=== PATIENT | female | born 1955 | race Caucasian/White ===

== ENCOUNTER 2017-01-14 05:51 | Day surgery (SDC) | payer MEDICARE ==
[2017-01-14] MEDS ORDERED: Lactated Ringers 1,000 ML IV SCH (06:00)
[2017-01-14 06:30] VITALS: PULSE 61
[2017-01-14] MEDS ORDERED: Ketamine HCl 50 MG/ML IV ONE (08:00)
[2017-01-14] MEDS ORDERED: DIPRIVAN 200 MG/20 ML IV ONE (08:00)
[2017-01-14 08:43] VITALS: BP 130/70; O2SAT 100
--- NOTE | 2017-01-14 08:59 | OP ---
SURGERY DATE: 01/14/17 SURGERY TIME: 729 PREOPERATIVE DIAGNOSIS: 1. ABDOMINAL PAIN. 2. WEIGHT LOSS. 3. HISTORY OF COLON POLYPS. POSTOPERATIVE DIAGNOSIS: 1. SIGMOID COLON POLYP. 2. TRANSVERSE COLON POLYP. PROCEDURE: 1. Colonoscopy with polypectomy. SURGEON: Dr. Antonio. ANESTHESIA: MAC. Medications given by the Anesthesia Department. BRIEF HISTORY: The patient is a 62 y/o WF presenting now for colonoscopic evaluation for the above problems. The patient was appraised of the risks of the procedure including the risk of perforation, phlebitis, untoward reaction to medication, bleeding, and missed lesions. The patient verbalized her understanding and desired to have the procedure performed. DESCRIPTION OF PROCEDURE: The patient was given the medications by the Anesthesia Department. She had continuous pulse oximetry, ECG monitoring, intermittent BP monitoring, and end tidal CO2 monitoring during the examination. She was placed in the left lateral decubitus position. A digital rectal examination was performed and revealed normal anal sphincter tone and no masses. The flexible Olympus pediatric colonoscope was used to intubate the rectum. A view of the colon was developed sequentially to the cecum. Upon insertion and withdrawal, was noted a polyp measuring approximately 0.7 cm in size in the transverse colon. This was destroyed using multiple passes of the cold biopsy forceps. There was also a larger, approximately 1.2 cm pedunculated polyp noted in the sigmoid colon. This was removed using the polypectomy snare with hot technique, but the polyp was retrieved for pathologic evaluation. Upon insertion and withdrawal, including a retroflex view in the rectum, no other mucosal lesions were encountered. The scope was removed from the patient who tolerated the procedure well and was sent back to OP recovery in good condition. The prep was noted to be fair to good.
== END 2017-01-14 09:12 | disposition home or self-care (01) ==
LOC: SDC 05:51
PROVIDERS: ATTEND Family Medicine
PROC: 0DBN8ZX Excision of Sigmoid Colon, Via Natural or Artificial Opening Endoscopic, Diagnostic (ICD-10-PCS; principal; 2017-01-14)
PROC: 0DBL8ZX Excision of Transverse Colon, Via Natural or Artificial Opening Endoscopic, Diagnostic (ICD-10-PCS; 2017-01-14)
DX: D12.5 Benign neoplasm of sigmoid colon (principal); D12.3 Benign neoplasm of transverse colon; Z86.010 Personal history of colon polyps; R63.4 Abnormal weight loss
CPT/HCPCS: 00810; 36415; 45398; 88305; J2704

== ENCOUNTER 2017-05-02 05:51 | Day surgery (SDC) | payer MEDICARE, SELFPAY ==
[2017-05-02] MEDS ORDERED: DIPRIVAN 200 MG/20 ML IV ONE (05:52)
[2017-05-02] MEDS ORDERED: Lactated Ringers 1,000 ML IV SCH (06:00)
[2017-05-02 07:57] VITALS: PULSE 72; O2SAT 97
[2017-05-02 08:03] VITALS: BP 143/81
--- NOTE | 2017-05-02 13:59 | OP ---
SURGERY DATE/TIME: 05/02/2017 0655 PREOPERATIVE DIAGNOSIS: Dysphagia. POSTOPERATIVE DIAGNOSES: 1) Duodenitis. 2) Gastritis. PROCEDURE: Esophagogastroduodenoscopy with biopsy. SURGEON: Dr. Antonio. ANESTHESIA: Medications were given by the anesthesia department. HISTORY: The patient is a 62 year old white female with history of having had cholecystectomy. She reports that she is not digesting her food right and having problems with discomfort in her epigastric region. The patient was felt the need to have endoscopic evaluation. She was appraised of the risks of the procedure including the risk of perforation, phlebitis, untoward reaction to medication, bleeding and missed lesions. The patient verbalized her understanding and desired to have the procedure performed. DESCRIPTION OF PROCEDURE: The patient was given the medications by the anesthesia department. She had continuous pulse oximetry, ECG monitoring, intermittent blood pressure monitoring and tidal CO2 monitoring during the examination. She was placed in the left lateral decubitus position. A bite block was placed. A flexible Olympus gastroscope was used to intubate the oropharynx. The esophagus was entered with ease and appeared to be normal throughout its length. The stomach was entered where normal gastric rugal folds were seen and these distended nicely with the insufflation of air. There was noted to be erythema and areas of inflammation throughout the antrum and first portion of the duodenum. There were no erosions or ulcerations however. The scope was passed through the pylorus to the duodenum which was inspected. The scope was withdrawn towards the stomach. Again, a retroflex view was obtained of the lesser curvature, fundus and cardia regions of the stomach and these appeared to be normal. The scope was then redirected towards the gastric antrum and biopsies were obtained to rule out the presence of Helicobacter pylori-type organisms and confirmed the presence of gastritis. The scope was removed from the patient who tolerated the procedure well and was sent back to outpatient recovery in good condition.
== END 2017-05-02 08:10 | disposition home or self-care (01) ==
LOC: SDC 05:51
PROVIDERS: ATTEND Family Medicine
PROC: 0DB68ZX Excision of Stomach, Via Natural or Artificial Opening Endoscopic, Diagnostic (ICD-10-PCS; principal; 2017-05-02)
DX: K29.80 Duodenitis without bleeding (principal); K29.70 Gastritis, unspecified, without bleeding
CPT/HCPCS: 00740; 36415; 88305; J2704

== ENCOUNTER 2017-12-14 17:07 | Observation (INO) | payer MEDICARE, SELFPAY ==
[2017-12-14] MEDS ORDERED: PROTONIX 40 MG IV IV ONE ×2 (17:39→17:45)
[2017-12-14] MEDS ORDERED: Sodium Chloride 0.9% 1000 ML 1,000 ML IV STA (17:39)
[2017-12-14] MEDS ORDERED: APRESOLINE 20 MG/ML INJ IV ONE (17:41)
[2017-12-14] MEDS ORDERED: Sodium Chloride 0.9% 1000 ML 1,000 ML ONE (17:45)
[2017-12-14] MEDS ORDERED: APRESOLINE 20 MG/ML INJ ONE (17:45)
--- NOTE | 2017-12-14 17:45 | ERPHSYRPT ---
- History of Present Illness Historian: patient Patient Subjective Stated Complaint: Abdominal Pain and bloating x3 weeks Triage Nursing Assessment: Pt presents to the ED with complaints of abdominal pain and bloating x3 weeks. Pt states worsening pain today at 1500. Pt states hx of gastroporesis. Pt denies other complaints. No distress noted, skin PWD. Hx Tetanus, Diphtheria Vaccination/Date Given: No Hx Influenza Vaccination/Date Given: Yes Hx Pneumococcal Vaccination/Date Given: No Immunizations Up to Date: No <VANESSA RODAS - Last Filed: 12/14/17 18:41> <ULICES LEON - Last Filed: 12/14/17 19:51> - History of Present Illness Time Seen by Provider: 12/14/17 17:42 Physician History: mild to mod off and on diffuse abdominal cramps for 3 weeks, no injury, no emesis, hx gastroparesis, but no dm (VANESSA RODAS) Allergies/Adverse Reactions: midazolam [From Versed] Adverse Reaction (Mild, Verified 05/02/17 06:12) Nausea and Vomiting Home Medications: Metoprolol Tartrate 50 mg [Lopressor 50 MG] 50 mg PO BID 01/12/17 [History ] - Review of Systems Constitutional: No Fever Eyes: No Vision Changes Ears, Nose, & Throat: No Mouth Pain Respiratory: No Cough, No Dyspnea Cardiac: No Chest Pain Abdominal/Gastrointestinal: Abdominal Pain, Nausea Genitourinary Symptoms: No Dysuria Musculoskeletal: No Back Pain Neurological: No Dizziness <VANESSA RODAS - Last Filed: 12/14/17 18:41> - Past Medical History Pertinent Past Medical History: Yes Neurological History: No Pertinent History ENT History: No Pertinent History Cardiac History: Hypertension Respiratory History: No Pertinent History Endocrine Medical History: No Pertinent History Musculoskeletal History: No Pertinent History GI Medical History: Gallbladder Disease, Other History: No Pertinent History Psycho-Social History: No Pertinent History Female Reproductive Disorders: No Pertinent History Other Medical History: pt states "i have neuropathy,even though i've not been diagnosed. I have a fatty liver with lesions,but they told me after my last C.T. scan that it had resolved. ". - Past Surgical History Past Surgical History: Yes Neuro Surgical History: No Pertinent History Cardiac: No Pertinent History Respiratory: No Pertinent History Gastrointestinal: Cholecystectomy, Other Genitourinary: No Pertinent History Musculoskeletal: No Pertinent History Female Surgical History: No Pertinent History Other Surgical History: pt states has gastric poresis - Social History Smoking Status: Never smoker Exposure to second hand smoke: No Drug Use: none Patient Lives Alone: No - Female History Hx Now: No <VANESSA RODAS - Last Filed: 12/14/17 18:41> - Physical Exam General Appearance: no apparent distress Eye Exam: PERRL/EOMI Ears, Nose, Throat Exam: moist mucous membranes Neck Exam: normal inspection Respiratory Exam: normal breath sounds Cardiovascular Exam: regular rate/rhythm Gastrointestinal/Abdomen Exam: soft, tenderness, No rebound Extremity Exam: normal inspection, pelvis stable Neurologic Exam: alert, oriented x 3, cooperative Skin Exam: normal color, warm, dry SpO2 Interpretation: normal SpO2: 99 Oxygen Delivery: Room Air <VANESSA RODAS - Last Filed: 12/14/17 18:41> - Nursing Vital Signs Nursing Vital Signs: Initial Vital Signs Temperature 98.2 F 12/14/17 17:14 Pulse Rate 120 H 12/14/17 17:14 Respiratory Rate 16 12/14/17 17:14 Blood Pressure 222/121 12/14/17 17:14 O2 Sat by Pulse Oximetry 99 12/14/17 17:14 Pain Scale Pain Intensity 4 Ordered Tests: Active Orders 24 hr Category Date Time Status Bedrest with BRP/BSC ROUTINE Activity 12/14/17 19:47 Active Call Admit Doctor for Orders ON ADMISSION Care 12/14/17 19:46 Active Code Status Order ROUTINE Care 12/14/17 19:45 Active EKG-ER Only STAT Care 12/14/17 17:39 Active IV Care Q6H Care 12/14/17 19:45 Active IV Insertion STAT Care 12/14/17 17:[address] in Observation ROUTINE Care 12/14/17 19:45 Active Telemetry ROUTINE Care 12/14/17 19:45 Active Weight,Daily 0600 Care 12/14/17 19:45 Active Clear Liquid Diet 12/15/17 Breakfast Active ABDOMEN AND PELVIS W/0 CONTRAS [CT] Stat Exams 12/14/17 17:40 Taken AMYLASE AM.LAB Lab 12/16/17 04:00 Ordered AMYLASE Stat Lab 12/14/17 19:23 Ordered CBC W DIFF AM.LAB Lab 12/15/17 04:00 Ordered CBC W DIFF Stat Lab 12/14/17 17:30 Completed CMP AM.LAB Lab 12/15/17 04:00 Ordered CMP Stat Lab 12/14/17 17:30 Completed D-DIMER QUANTITATION Stat Lab 12/14/17 17:30 Completed LIPASE AM.LAB Lab 12/16/17 04:00 Ordered LIPASE Stat Lab 12/14/17 17:30 Completed Lactic Acid Stat Lab 12/14/17 17:39 Completed PROTIME WITH INR Stat Lab 12/14/17 17:30 Completed TROPONIN Q3H Lab 12/14/17 17:53 Completed TROPONIN Q3H Lab 12/14/17 20:45 Ordered TROPONIN Q3H Lab 12/14/17 23:45 Ordered TROPONIN Q3H Lab 12/15/17 02:45 Ordered TROPONIN Q3H Lab 12/15/17 05:45 Ordered Urine Triage Profile Stat Lab 12/14/17 19:06 Completed Medication Summary Generic Name Dose Route Start Last Admin Trade Name Freq PRN Reason Stop Dose Admin Hydralazine HCl 10 mg 12/14/17 19:45 Apresoline 20 Mg/Ml Inj IV 01/13/18 19:44 Q4H PRN PRN HYPERTENSION Potassium Chloride/Sodium Chloride 1,000 mls @ 100 mls/hr 12/14/17 19:45 Sodium Chloride 0.9% W/ 20 Meq Kcl/Liter IV 01/13/18 19:44 .Q10H LUISITO Morphine Sulfate 4 mg 12/14/17 19:45 Morphine Sulfate 4 Mg Inj IV 12/19/17 19:44 Q4H PRN PRN PAIN Ondansetron HCl 4 mg 12/14/17 19:45 Zofran 4 Mg/2 Ml Vial IV 01/13/18 19:44 Q6H PRN PRN NAUSEA/VOMITING Potassium Chloride 40 meq 12/15/17 10:00 12/14/17 18:48 Potassium Chl 40 Meq/30 Ml Oral Solution PO 01/14/18 09:59 Not Given DAILY LUISITO Discontinued Medications Generic Name Dose Route Start Last Admin Trade Name Freq PRN Reason Stop Dose Admin Hydralazine HCl 10 mg 12/14/17 17:41 12/14/17 17:50 Apresoline 20 Mg/Ml Inj IV 12/14/17 17:42 10 mg STAT ONE Administration Hydralazine HCl Confirm 12/14/17 17:45 Apresoline 20 Mg/Ml Inj Administered 12/14/17 17:46 Dose 20 mg .ROUTE .STK-MED ONE Sodium Chloride 1,000 mls @ 999 mls/hr 12/14/17 17:39 12/14/17 17:50 Sodium Chloride 0.9% 1000 Ml IV 12/14/17 18:39 999 mls/hr .Q1H1M STA Administration Sodium Chloride Confirm 12/14/17 17:45 Sodium Chloride 0.9% 1000 Ml Administered 12/14/17 17:46 Dose 1,000 mls @ ud .ROUTE .STK-MED ONE Pantoprazole Sodium 40 mg 12/14/17 17:39 12/14/17 17:49 Protonix 40 Mg Iv IV 12/14/17 17:40 40 mg STAT ONE Administration Pantoprazole Sodium Confirm 12/14/17 17:45 Protonix 40 Mg Iv Administered 12/14/17 17:46 Dose 40 mg IV .STK-MED ONE Potassium Chloride 40 meq 12/14/17 18:49 12/14/17 18:54 Potassium Chloride 20 Meq Powder For Oral Kanika PO 12/14/17 18:50 40 meq STAT ONE Administration Potassium Chloride Confirm 12/14/17 18:51 Potassium Chloride 20 Meq Powder For Oral Kanika Administered 12/14/17 18:52 Dose 40 meq .ROUTE .STK-MED ONE Lab/Rad Data: Laboratory Result Diagrams 12/14/17 17:30 12/14/17 17:30 Laboratory Results 12/14/17 12/14/17 12/14/17 Range/Units 19:06 17:53 17:39 WBC (4.0-10.5) K/mm3 RBC (4.1-5.4) M/mm3 Hgb (12.0-16.0) gm/dl Hct (35-47) % MCV (78-100) fl MCH (26-32) pg MCHC (32-36) g/dl RDW (11.5-14.0) % Plt Count (150-450) K/mm3 MPV (6-9.5) fl Gran % (36.0-66.0) % Eos # (Auto) (0-0.5) Absolute Lymphs (auto) (1.0-4.6) Absolute Monos (auto) (0.0-1.3) Lymphocytes % (24.0-44.0) % Monocytes % (0.0-12.0) % Eosinophils % (0.00-5.0) % Basophils % (0.0-0.4) % Absolute Granulocytes (1.4-6.9) Basophils # (0-0.4) PT (9.95-12.35) SECONDS INR (0.8-3.0) D-Dimer (215-500) ng/mL Sodium (137-145) mmol/L Potassium (3.5-5.1) mmol/L Chloride (98-107) mmol/L Carbon Dioxide (22-30) mmol/L Anion Gap (5-15) MEQ/L BUN (7-17) mg/dL Creatinine (0.52-1.04) mg/dL Estimated GFR ML/MIN Glucose (74-106) mg/dL Lactic Acid 1.7 (0.4-2.0) Calcium (8.4-10.2) mg/dL Total Bilirubin (0.2-1.3) mg/dL AST (14-36) U/L ALT (0-35) U/L Alkaline Phosphatase (38-126) U/L Troponin I 0.034 (0.000-0.034) ng/mL Serum Total Protein (6.3-8.2) g/dL Albumin (3.5-5.0) g/dL Lipase (23-300) U/L Urine Opiates Level NEGATIVE (NEGATIVE) Ur Methadone NEGATIVE (NEGATIVE) Urine Barbiturates NEGATIVE (NEGATIVE) Ur Phencyclidine (PCP) NEGATIVE (NEGATIVE) Urine Amphetamine NEGATIVE (NEGATIVE) U Benzodiazepine Level NEGATIVE (NEGATIVE) Urine Cocaine NEGATIVE (NEGATIVE) Urine Marijuana (THC) NEGATIVE (NEGATIVE) 12/14/17 12/14/17 12/14/17 Range/Units 17:30 17:30 17:30 WBC 8.8 (4.0-10.5) K/mm3 RBC 5.49 H (4.1-5.4) M/mm3 Hgb 16.0 (12.0-16.0) gm/dl Hct 45.8 (35-47) % MCV 83.4 (78-100) fl MCH 29.1 (26-32) pg MCHC 34.9 (32-36) g/dl RDW 13.2 (11.5-14.0) % Plt Count 286 (150-450) K/mm3 MPV 11.7 H (6-9.5) fl Gran % 51.7 (36.0-66.0) % Eos # (Auto) 0.21 (0-0.5) Absolute Lymphs (auto) 3.16 (1.0-4.6) Absolute Monos (auto) 0.82 (0.0-1.3) Lymphocytes % 35.9 (24.0-44.0) % Monocytes % 9.3 (0.0-12.0) % Eosinophils % 2.4 (0.00-5.0) % Basophils % 0.7 (0.0-0.4) % Absolute Granulocytes 4.54 (1.4-6.9) Basophils # 0.06 (0-0.4) PT 13.1 H (9.95-12.35) SECONDS INR 1.13 (0.8-3.0) D-Dimer 404 (215-500) ng/mL Sodium 142 (137-145) mmol/L Potassium 2.6 L* (3.5-5.1) mmol/L Chloride 95 L (98-107) mmol/L Carbon Dioxide 30 (22-30) mmol/L Anion Gap 19.3 H (5-15) MEQ/L BUN 4 L (7-17) mg/dL Creatinine 0.62 (0.52-1.04) mg/dL Estimated GFR > 60.0 ML/MIN Glucose 137 H (74-106) mg/dL Lactic Acid (0.4-2.0) Calcium 9.6 (8.4-10.2) mg/dL Total Bilirubin 0.70 (0.2-1.3) mg/dL AST 55 H (14-36) U/L ALT 55 H (0-35) U/L Alkaline Phosphatase 116 (38-126) U/L Troponin I (0.000-0.034) ng/mL Serum Total Protein 7.7 (6.3-8.2) g/dL Albumin 4.5 (3.5-5.0) g/dL Lipase 287 (23-300) U/L Urine Opiates Level (NEGATIVE) Ur Methadone (NEGATIVE) Urine Barbiturates (NEGATIVE) Ur Phencyclidine (PCP) (NEGATIVE) Urine Amphetamine (NEGATIVE) U Benzodiazepine Level (NEGATIVE) Urine Cocaine (NEGATIVE) Urine Marijuana (THC) (NEGATIVE) <VANESSA RODAS - Last Filed: 12/14/17 18:41> - Progress Progress: improved <ULICES LEON - Last Filed: 12/14/17 19:51> - Progress Progress Note: 12/14/17 18:[address] Leon at 19:00 (VANESSA RODAS) 12/14/17 19:26 This is a 62-year-old white female with history of high blood pressure gallbladder disease neuropathy She arrives with complaints of epigastric pain abdominal pain and bloating for 3 weeks initially seen by Dr. Rodas Patient was noted to have markedly elevated blood pressure and also was noted to have a low potassium patient was given hydralazine and oral potassium by Dr. Rodas CT of the patient's abdomen hiatal hernia no new or acute findings Labs CBC 8.8 hemoglobin 16 0 hematocrit 45.8 platelets 286 troponin 0.34D dimer 404 chemistry sodium 142 potassium 2.6 chloride 95 bicarbonate 30 BUN 4 creatinine 0.62 glucose 137 Patient's EKG sinus tachycardia 103 beats for minute complete right bundle- branch block left anterior fascicular block no old EKG for comparison Physical examination HEENT within normal limits Neck is supple lungs are clear heart 1/6 systolic murmur abdomen mild epigastric tenderness positive bowel sounds extremities full range of motion pulse equal symmetrical 2 over 4 neuro patient alert oriented 3 cranial nerves II through XII are intact. Impression abdominal pain., High blood pressure (hypertensive urgency) Patient states she is unable to eat and is not taking her blood pressure meds Plan Will discuss case with Dr. Amor 12/14/17 19:42 Case is discussed with Dr. Amor will place patient on observation telemetry. Will place patient on IV fluids. Will provide hydralazine when necessary blood pressure elevation. Morphine for pain Zofran for vomiting. (ULICES LEON) <VANESSA RODAS - Last Filed: 12/14/17 18:41> - Departure Time of Disposition: 19:44 Departure Disposition: Observation Critical Care Time: No <ULICES LEON - Last Filed: 12/14/17 19:51> - Departure Clinical Impression: Hypertensive urgency, Epigastric pain, Hypokalemia Condition: Fair Referrals: CABRERA GARSIA [Primary Care Provider] -
[2017-12-14 17:58] LABS: BASOPHIL % 0.7 % (0.0-0.4); Basophil (Absolute #) 0.06 (0-0.4); Eosinophil % 2.4 % (0.00-5.0); Eosinophil (Absolute #) 0.21 (0-0.5); Granulocyte Absolute (ANC) 4.54 (1.4-6.9); Granulocytes % 51.7 % (36.0-66.0); Hematocrit 45.8 % (35-47); Lymphocyte (Absolute #) 3.16 (1.0-4.6); Lymphocytes % 35.9 % (24.0-44.0); Mean Cell Volume 83.4 fl (78-100); Mean Corpuscular Hemoglobin 29.1 pg (26-32); Mean Corpuscular Hgb Concent. 34.9 g/dl (32-36); Mean Platelet Volume 11.7 fl (6-9.5); Monocyte (Absolute #) 0.82 (0.0-1.3); Monocytes % 9.3 % (0.0-12.0); Platelet Count 286 K/mm3 (150-450); Red Blood Count 5.49 M/mm3 (4.1-5.4); Red Cell Distribution Width 13.2 % (11.5-14.0); White Blood Count 8.8 K/mm3 (4.0-10.5)
[2017-12-14 18:09] LABS: ALBUMIN 4.5 g/dL (3.5-5.0); ALKALINE PHOSPHATASE 116 U/L (38-126); ANION GAP 19.3 MEQ/L (5-15); BLOOD UREA NITROGEN 4 mg/dL (7-17); CHLORIDE 95 mmol/L (98-107); Calcium 9.6 mg/dL (8.4-10.2); Carbon Dioxide 30 mmol/L (22-30); Creatinine 1 0.62 mg/dL (0.52-1.04); Glucose 137 mg/dL (74-106); LIPASE 287 U/L (23-300); SGOT/AST 55 U/L (14-36); SGPT/ALT 55 U/L (0-35); SODIUM 142 mmol/L (137-145); Total Protein 7.7 g/dL (6.3-8.2)
[2017-12-14 18:16] LABS: Potassium 2.6 mmol/L (3.5-5.1)
[2017-12-14 18:18] LABS: INR 1.13 (0.8-3.0)
[2017-12-14] MEDS ORDERED: POTASSIUM CHLORIDE 20 MEQ POWDER FOR ORAL SOL PO ONE (18:49)
[2017-12-14] MEDS ORDERED: POTASSIUM CHLORIDE 20 MEQ POWDER FOR ORAL SOL ONE (18:51)
[2017-12-14 19:26] LABS: Amphetamine,Urine NEGATIVE (NEGATIVE); Barbiturate,Urine NEGATIVE (NEGATIVE); Benzodiazepine,Urine NEGATIVE (NEGATIVE); Cocaine,Urine NEGATIVE (NEGATIVE); Methadone,Urine NEGATIVE (NEGATIVE); Opiate,Urine NEGATIVE (NEGATIVE); PCP,Urine NEGATIVE (NEGATIVE); THC,Urine NEGATIVE (NEGATIVE)
[2017-12-14] MEDS ORDERED: APRESOLINE 20 MG/ML INJ IV PRN (19:45)
[2017-12-14] MEDS ORDERED: MORPHINE SULFATE 4 MG INJ IV PRN (19:45)
[2017-12-14] MEDS: Sodium Chloride 0.9% W/ 20 mEq KCl/LITER 1,000 ML IV SCH (20:20)
[2017-12-14] MEDS: Zofran 4 MG/2 ML VIAL IV PRN (21:07)
[2017-12-15] MEDS: Zofran 4 MG/2 ML VIAL IV PRN ×3 (03:40→13:34)
[2017-12-15] MEDS: Sodium Chloride 0.9% W/ 20 mEq KCl/LITER 1,000 ML IV SCH ×2 (05:31→15:45)
[2017-12-15 06:04] LABS: Basophil (Absolute #) 0.07 (0-0.4); Eosinophil % 0.6 % (0.00-5.0); Eosinophil (Absolute #) 0.04 (0-0.5); Granulocyte Absolute (ANC) 4.56 (1.4-6.9); Granulocytes % 68.3 % (36.0-66.0); Hematocrit 39.4 % (35-47); Hemoglobin 13.4 gm/dl (12.0-16.0); Lymphocyte (Absolute #) 1.54 (1.0-4.6); Lymphocytes % 23.1 % (24.0-44.0); Mean Corpuscular Hemoglobin 29.3 pg (26-32); Mean Platelet Volume 11.5 fl (6-9.5); Monocyte (Absolute #) 0.47 (0.0-1.3); Platelet Count 218 K/mm3 (150-450); Red Blood Count 4.58 M/mm3 (4.1-5.4); Red Cell Distribution Width 13.3 % (11.5-14.0); White Blood Count 6.7 K/mm3 (4.0-10.5)
[2017-12-15 06:17] LABS: ALBUMIN 3.2 g/dL (3.5-5.0); ALKALINE PHOSPHATASE 82 U/L (38-126); ANION GAP 14.1 MEQ/L (5-15); BLOOD UREA NITROGEN 3 mg/dL (7-17); CHLORIDE 105 mmol/L (98-107); Calcium 8.6 mg/dL (8.4-10.2); Carbon Dioxide 29 mmol/L (22-30); Creatinine 1 0.54 mg/dL (0.52-1.04); Glucose 106 mg/dL (74-106); Potassium 3.5 mmol/L (3.5-5.1); SGOT/AST 37 U/L (14-36); SGPT/ALT 43 U/L (0-35); SODIUM 145 mmol/L (137-145); Total Protein 5.8 g/dL (6.3-8.2)
--- NOTE | 2017-12-15 08:24 | XRAY ---
Indication: Abdominal pain/pressure. Constipation. History gastroparesis. Multiple contiguous axial images obtained through the abdomen and pelvis without contrast as ordered. Comparison: December 23, 2016. Lung bases remain clear. Heart is not enlarged. Stable small hiatal hernia. Stomach mildly fluid distended. Noncontrasted stomach and bowel loops appear nonobstructed. Appendix not seen. No free fluid/air. Again mild fatty liver with stable 2 subcentimeter hypodense lesions in the right lobe. There remains a few nonspecific centimeter/subcentimeter mesenteric root nodes. Remaining pancreas, spleen, adrenal glands, kidneys, ureters, bladder, and uterus appear unremarkable for noncontrast exam. Stable minimal aortoiliac calcifications without AAA. Osseous structures intact again with degenerative changes, greatest in the lower lumbar spine. Stable tiny L2 bone island. No ventral or inguinal hernias. Impression: 1. Stable small hiatal hernia, small nonspecific mesenteric root nodes, fatty liver, and small hepatic hypodense lesions. 2. No new or acute intra-abdominal/pelvic abnormalities on this noncontrast exam. CT DI 25.31
--- NOTE | 2017-12-15 08:37 | XRAY ---
Indication: Abdominal bloating, constipation, nausea, and vomiting. Comparison: None. There is a CT abdomen/pelvis 1 day earlier. KUB nonacute and nonobstructed with cholecystectomy clips. Solid organs unremarkable. Osseous structures intact with mild degenerative changes. Impression: Negative KUB.
[2017-12-15] MEDS: PROTONIX 40 MG IV IV SCH (08:49)
[2017-12-15] MEDS ORDERED: Miralax Powder 17GM PACKET PO SCH (10:00)
[2017-12-15] MEDS ORDERED: POTASSIUM CHL 40 MEQ/30 ML ORAL SOLUTION PO SCH (10:00)
[2017-12-15] MEDS: Miralax Powder 17GM PACKET PO SCH (14:29)
[2017-12-15] MEDS: POTASSIUM CHLORIDE 20 MEQ POWDER FOR ORAL SOL PO SCH (14:35)
[2017-12-16] MEDS: Sodium Chloride 0.9% W/ 20 mEq KCl/LITER 1,000 ML IV SCH (01:42)
[2017-12-16 06:25] LABS: AMYLASE 50 U/L (30-110); LIPASE 256 U/L (23-300)
[2017-12-16 06:26] LABS: ALBUMIN 2.7 g/dL (3.5-5.0); ALKALINE PHOSPHATASE 69 U/L (38-126); ANION GAP 10.6 MEQ/L (5-15); BLOOD UREA NITROGEN 3 mg/dL (7-17); CHLORIDE 109 mmol/L (98-107); Calcium 8.3 mg/dL (8.4-10.2); Carbon Dioxide 25 mmol/L (22-30); Creatinine 1 0.63 mg/dL (0.52-1.04); Glucose 71 mg/dL (74-106); Potassium 3.6 mmol/L (3.5-5.1); SGOT/AST 36 U/L (14-36); SGPT/ALT 37 U/L (0-35); SODIUM 141 mmol/L (137-145); Total Protein 4.9 g/dL (6.3-8.2)
[2017-12-16] MEDS: Miralax Powder 17GM PACKET PO SCH (09:34)
[2017-12-16] MEDS: PROTONIX 40 MG IV IV SCH (09:34)
[2017-12-16] MEDS: POTASSIUM CHLORIDE 20 MEQ POWDER FOR ORAL SOL PO SCH (09:34)
[2017-12-16 12:15] VITALS: BP 146/66; PULSE 52; O2SAT 100
== END 2017-12-16 16:05 | disposition home or self-care (01) ==
LOC: ED 17:07 → MED SURG 20:09
PROVIDERS: ADMIT Family Medicine; ATTEND Family Medicine
DX: I16.0 Hypertensive urgency (principal); E87.6 Hypokalemia; K59.00 Constipation, unspecified; Z79.899 Other long term (current) drug therapy
CPT/HCPCS: 36000; 36415; 74018; 74176; 80053; 80307; 82150; 83605; 83690; 84484; 85025; 85379; 85610; 93005; 93268; 96360; 96374; 96375; 99285; J0360; J2270; J2405; A9270-GY; G0378

== ENCOUNTER 2019-07-19 11:11 | Emergency (ER) | payer MEDICARE ==
[2019-07-19 12:48] LABS: BASOPHIL % 0.2 % (0.0-0.4); Basophil (Absolute #) 0.02 (0-0.4); Eosinophil % 0.3 % (0.00-5.0); Eosinophil (Absolute #) 0.03 (0-0.5); Hematocrit 43.9 % (35-47); Hemoglobin 14.5 gm/dl (12.0-16.0); Lymphocyte (Absolute #) 1.54 (1.0-4.6); Mean Cell Volume 90.5 fl (78-100); Mean Corpuscular Hemoglobin 29.9 pg (26-32); Mean Platelet Volume 11.6 fl (6-9.5); Monocyte (Absolute #) 0.36 (0.0-1.3); Neutrophil % 83.5 % (36.0-66.0); Platelet Count 184 K/mm3 (150-450); Red Blood Count 4.85 M/mm3 (4.1-5.4); Red Cell Distribution Width 13.4 % (11.5-14.0); White Blood Count 11.9 K/mm3 (4.0-10.5)
[2019-07-19 13:09] LABS: ALBUMIN 4.3 g/dL (3.5-5.0); ALKALINE PHOSPHATASE 65 U/L (38-126); BLOOD UREA NITROGEN 7 mg/dL (7-17); CHLORIDE 107 mmol/L (98-107); Calcium 9.5 mg/dL (8.4-10.2); Carbon Dioxide 27 mmol/L (22-30); Creatinine 1 0.56 mg/dL (0.52-1.04); Glucose 147 mg/dL (74-106); LIPASE 56 U/L (23-300); Potassium 4.3 mmol/L (3.5-5.1); SGOT/AST 50 U/L (14-36); SGPT/ALT 31 U/L (0-35); SODIUM 141 mmol/L (137-145); Total Protein 7.6 g/dL (6.3-8.2)
--- NOTE | 2019-07-19 13:13 | XRAY ---
Indication: Abdomen pain. Comparison: July 04, 2019. KUB remains nonacute and nonobstructed with cholecystomy clips. Solid organs unremarkable. Osseous structures intact again with lower lumbar degenerative changes. Impression: Stable negative KUB.
--- NOTE | 2019-07-19 15:18 | XRAY ---
Indication: Abdominal pain one month. Multiple contiguous axial images obtained through the abdomen and pelvis using 80 cc Isovue 370 contrast only. Comparison: December 14, 2017. Lung bases again grossly clear. Heart is not enlarged. Stable small hiatal hernia. Noncontrasted stomach and bowel loops nonobstructed. Appendix not seen. Tiny cul-de-sac fluid presumed physiologic from rupture/leaking cyst. No walled off fluid collection or free air. New 9 mm nabothian cyst. Stable mild fatty liver, small nonspecific mesenteric root lymph nodes, and previous cholecystectomy. Remaining liver, pancreas, spleen, adrenal glands, kidneys, ureters, bladder, and uterus appear unremarkable. Stable minimal aortoiliac calcifications without AAA. Osseous structures intact again with mild degenerative changes throughout the thoracolumbar spine and stable L2 bone island. Impression: 1. New tiny cul-de-sac free fluid presumed physiologic. Tiny nabothian cyst. 2. Stable small nonspecific mesenteric root lymph nodes, fatty liver, small hiatal hernia, and chronic bony findings. 3. Remaining CT abdomen/pelvis with contrast exam is negative. CT DI 16.95
[2019-07-19 16:23] VITALS: BP 175/98; PULSE 67; O2SAT 98
--- NOTE | 2019-07-19 17:54 | ERPHSYRPT ---
- History of Present Illness Time Seen by Provider: 07/19/19 13:25 Historian: patient Exam Limitations: no limitations Patient Subjective Stated Complaint: "I have been constipated and having to take laxitives to have bowel movements, I have gastroparesis and have had issues with that. Dr. Antonio put me on Protonix 40mg yesterday and I have been on clear liquid diet. I can't eat solid foods. I can barely keep water down without vomiting it up. I have lost a lot of weight. I was 215lbs just before and now I weigh 187lb". Triage Nursing Assessment: Pt presents to ER with complaints of "being sick". Pt presents with nausea, abd pain, constipation, abd distension, abd tenderness. Pt is alert and oriented x 3, ambulates with slow gait. Pt resp are unlabored and breath sounds clear throughout. Pt abd is soft but distended at mid epigastric region, tenderness during palpation. States pain is mostly located in mid epigastric region and right upper quadrant. Had recent barium swallow CT scan recently ordered by Dr. Antonio, states no findings noted. Physician History: LONG HX GASTRITIS/ ESOPHAGITIS , DUODENITIS--- POS: HIATIAL HERNIA SEE A SPECIALIST FOR SYMPTOMS . HAS BEEN CONSTIPATED FOPR THE PAST 2 -3 DAYS --HAS TAKEN LAXATIVE FOR S/S FEELING BLOATED Timing/Duration: day(s) (3 ) Activities at Onset: activity (ADL-ACTIVITIES ) Quality: aching, cramping Abdominal Pain Onset Location: RUQ, LUQ, epigastric Pain Radiation: back Severity of Pain-Max: mild (TO MODERATE) Severity of Pain-Current: mild Modifying Factors: Improves With: antacids, eating, lying down, movement Associated Symptoms: other (NEGATIVE MELANA ) Previous symptoms: same symptoms as today (IS BEENING FOLLOW BY GI DOCTOE HAS HAD A RECENT SCOPE EGD --POS; GASTRITIS/ESOPHAGITIS ) Allergies/Adverse Reactions: midazolam [From Versed] Adverse Reaction (Mild, Verified 07/19/19 11:47) Nausea and Vomiting Home Medications: Aspirin 81 gm Chew [Baby Aspirin 81 mg Chew] 81 mg PO DAILY 07/19/19 [ History] Benazepril HCl 10 mg [Lotensin 10 MG] 10 mg PO DAILY 07/19/19 [History] Metoprolol Tartrate 50 mg [Lopressor 50 MG] 50 mg PO BID 07/19/19 [History ] Omeprazole 20 mg PO DAILY 07/19/19 [History] Pantoprazole Sodium [Protonix] 40 mg PO DAILY 07/19/19 [History] Hx Tetanus, Diphtheria Vaccination/Date Given: Yes Hx Influenza Vaccination/Date Given: Yes Hx Pneumococcal Vaccination/Date Given: No Immunizations Up to Date: Yes - Review of Systems Constitutional: No Symptoms Eyes: No Symptoms Ears, Nose, & Throat: Nose Congestion Respiratory: Cough Cardiac: No Symptoms Abdominal/Gastrointestinal: Abdominal Pain, Nausea, Vomiting, Other (BLOATING) Genitourinary Symptoms: No Symptoms Musculoskeletal: Arthralgias, Back Pain, Myalgias Neurological: No Symptoms Psychological: No Symptoms Endocrine: No Symptoms Hematologic/Lymphatic: No Symptoms All Other Systems: Reviewed and Negative - Past Medical History Pertinent Past Medical History: Yes Neurological History: No Pertinent History ENT History: No Pertinent History Cardiac History: Hypertension Respiratory History: No Pertinent History Endocrine Medical History: No Pertinent History Musculoskeletal History: No Pertinent History GI Medical History: Gallbladder Disease, Other History: No Pertinent History Psycho-Social History: No Pertinent History Female Reproductive Disorders: No Pertinent History Other Medical History: gastroparesis, gastritis, duodenitis - Past Surgical History Past Surgical History: Yes Neuro Surgical History: No Pertinent History Cardiac: No Pertinent History Respiratory: No Pertinent History Gastrointestinal: Cholecystectomy Genitourinary: No Pertinent History Musculoskeletal: No Pertinent History Female Surgical History: No Pertinent History Other Surgical History: . - Social History Smoking Status: Never smoker Exposure to second hand smoke: No Drug Use: none Patient Lives Alone: Yes - Nursing Vital Signs Nursing Vital Signs: Initial Vital Signs Temperature 98.6 F 07/19/19 11:19 Pulse Rate 104 H 07/19/19 11:19 Respiratory Rate 18 07/19/19 11:19 Blood Pressure 166/99 07/19/19 11:19 O2 Sat by Pulse Oximetry 99 07/19/19 11:19 Pain Scale Pain Intensity 4 - Physical Exam General Appearance: mild distress Eye Exam: PERRL/EOMI Ears, Nose, Throat Exam: normal ENT inspection, moist mucous membranes Neck Exam: normal inspection, non-tender, supple, full range of motion Respiratory Exam: normal breath sounds, lungs clear, No chest tenderness, No diminished breath sounds Cardiovascular Exam: regular rate/rhythm, murmur (GRD 2/6 SYS 2RICS,2LICS,APEX IS FOLLOW 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 ) Gastrointestinal/Abdomen Exam: soft, tenderness (RUQ/LUQ,LLQ EPIGASTRIC MILD --WITH DEEP PALPATION ), other (DECREASED BS LLQ ), No guarding, No rebound , No organomegaly Pelvic Exam: deferred Rectal Exam: deferred Extremity Exam: normal inspection, normal range of motion, pelvis stable Neurologic Exam: alert, oriented x 3, cooperative, guest request runner II-XII nml as tested, normal mood/affect Skin Exam: normal color Lymphatic Exam: adenopathy SpO2: 98 O2 Delivery: Room Air - Course Nursing assessment & vital signs reviewed: Yes Ordered Tests: Active Orders 24 hr Category Date Time Status ABDOMEN AND PELVIS W CONTRAST [CT] Stat Exams 07/19/19 14:25 Completed KUB Stat Exams 07/19/19 12:17 Completed CBC W DIFF Stat Lab 07/19/19 12:30 Completed CMP Stat Lab 07/19/19 12:30 Completed LIPASE Stat Lab 07/19/19 12:30 Completed Lab/Rad Data: Laboratory Result Diagrams 07/19/19 12:30 07/19/19 12:30 Laboratory Results 07/19/19 07/19/19 Range/Units 12:30 12:30 WBC 11.9 H (4.0-10.5) K/mm3 RBC 4.85 (4.1-5.4) M/mm3 Hgb 14.5 (12.0-16.0) gm/dl Hct 43.9 (35-47) % MCV 90.5 (78-100) fl MCH 29.9 (26-32) pg MCHC 33.0 (32-36) g/dl RDW 13.4 (11.5-14.0) % Plt Count 184 (150-450) K/mm3 MPV 11.6 H (6-9.5) fl Gran % 83.5 H (36.0-66.0) % Eos # (Auto) 0.03 (0-0.5) Absolute Lymphs (auto) 1.54 (1.0-4.6) Absolute Monos (auto) 0.36 (0.0-1.3) Lymphocytes % 13.0 L (24.0-44.0) % Monocytes % 3.0 (0.0-12.0) % Eosinophils % 0.3 (0.00-5.0) % Basophils % 0.2 (0.0-0.4) % Absolute Granulocytes 9.90 H (1.4-6.9) Basophils # 0.02 (0-0.4) Sodium 141 (137-145) mmol/L Potassium 4.3 (3.5-5.1) mmol/L Chloride 107 (98-107) mmol/L Carbon Dioxide 27 (22-30) mmol/L Anion Gap 11.0 (5-15) MEQ/L BUN 7 (7-17) mg/dL Creatinine 0.56 (0.52-1.04) mg/dL Estimated GFR > 60.0 ML/MIN Glucose 147 H (74-106) mg/dL Calcium 9.5 (8.4-10.2) mg/dL Total Bilirubin 0.60 (0.2-1.3) mg/dL AST 50 H (14-36) U/L ALT 31 (0-35) U/L Alkaline Phosphatase 65 (38-126) U/L Serum Total Protein 7.6 (6.3-8.2) g/dL Albumin 4.3 (3.5-5.0) g/dL Lipase 56 (23-300) U/L - Progress Progress: improved - Departure Departure Disposition: Home Clinical Impression: Esophagitis, Gastritis and duodenitis, Hiatal hernia Condition: Stable Critical Care Time: No Referrals: CABRERA ANTONIO [Primary Care Provider] - Prescriptions: Famotidine [Pepcid] 40 mg PO BID 30 Days #60 tablet Hyoscyamine Sulfate 0.125 mg SL Q6-8HPRN PRN 15 Days #30 tab.subl PRN Reason: abominal cramps
== END 2019-07-19 18:09 | disposition home or self-care (01) ==
LOC: ED 11:11
DX: K20.9 Esophagitis, unspecified (principal); K29.70 Gastritis, unspecified, without bleeding; K29.80 Duodenitis without bleeding; K44.9 Diaphragmatic hernia without obstruction or gangrene
CPT/HCPCS: 36415; 74018; 74177; 80053; 83690; 85025; 99284

== ENCOUNTER 2019-08-12 09:37 | Emergency (ER) | payer MEDICARE ==
--- NOTE | 2019-08-12 10:02 | ERPHSYRPT ---
- History of Present Illness Time Seen by Provider: 08/12/19 09:49 Historian: patient Exam Limitations: no limitations Physician History: pt has had nausea for the past 2 months & generalized cramping abdominal pain for the past 3 weeks up to 10/10 in severity. last bm was yesterday & small in amount without blood. pt states she has an appointment with a gastroenterlogist( dr coley) at [facility] on 08/21/19. pt denies chest pain, vomiting and fever but states 2 weeks ago she had shortness of air. Allergies/Adverse Reactions: midazolam [From Versed] Adverse Reaction (Mild, Verified 08/12/19 10:06) Nausea and Vomiting Home Medications: Aspirin 81 gm Chew [Baby Aspirin 81 mg Chew] 81 mg PO DAILY 07/19/19 [ History] Benazepril HCl 10 mg [Lotensin 10 MG] 10 mg PO DAILY 07/19/19 [History] Metoprolol Tartrate 50 mg [Lopressor 50 MG] 50 mg PO BID 07/19/19 [History ] Omeprazole 20 mg PO DAILY 07/19/19 [History] Pantoprazole Sodium [Protonix] 40 mg PO DAILY 07/19/19 [History] Hx Tetanus, Diphtheria Vaccination/Date Given: Yes Hx Influenza Vaccination/Date Given: Yes Hx Pneumococcal Vaccination/Date Given: No - Review of Systems Constitutional: No Fever Respiratory: Dyspnea (2 weeks ago.) Cardiac: No Chest Pain Abdominal/Gastrointestinal: Abdominal Pain, Nausea, Constipation, No Vomiting - Past Medical History Pertinent Past Medical History: Yes Neurological History: No Pertinent History ENT History: No Pertinent History Cardiac History: Hypertension Respiratory History: No Pertinent History Endocrine Medical History: No Pertinent History Musculoskeletal History: No Pertinent History GI Medical History: Gallbladder Disease, Other History: No Pertinent History Psycho-Social History: No Pertinent History Female Reproductive Disorders: No Pertinent History Other Medical History: gastroparesis, gastritis, duodenitis - Past Surgical History Past Surgical History: Yes Neuro Surgical History: No Pertinent History Cardiac: No Pertinent History Respiratory: No Pertinent History Gastrointestinal: Cholecystectomy Genitourinary: No Pertinent History Musculoskeletal: No Pertinent History Female Surgical History: No Pertinent History Other Surgical History: . - Social History Smoking Status: Never smoker Exposure to second hand smoke: No Drug Use: none Patient Lives Alone: Yes - Nursing Vital Signs Nursing Vital Signs: Initial Vital Signs Temperature 97.4 F 08/12/19 09:46 Pulse Rate 131 H 08/12/19 09:46 Respiratory Rate 16 08/12/19 09:46 Blood Pressure 142/110 08/12/19 09:46 O2 Sat by Pulse Oximetry 100 08/12/19 09:46 Pain Scale Pain Intensity 3 - Physical Exam General Appearance: alert Eye Exam: PERRL/EOMI Ears, Nose, Throat Exam: TMs normal, pharynx normal Neck Exam: normal inspection Respiratory Exam: normal breath sounds Cardiovascular Exam: murmur (systolic 2/6), tachycardia Gastrointestinal/Abdomen Exam: soft, normal bowel sounds Back Exam: normal inspection Extremity Exam: No pedal edema Neurologic Exam: alert, cooperative Skin Exam: warm, dry SpO2 Interpretation: normal SpO2: 100 O2 Delivery: Room Air - Course Nursing assessment & vital signs reviewed: Yes EKG Interpreted by Me: RATE (91), Sinus Rhythm, Left [place] Deviation, LAFB, NORMAL INTERVALS, Other (RBBB) - CT Exams Abdomen/Pelvis CT Interpretation: Tele-radiologist Report (no acute findings) Ordered Tests: Active Orders 24 hr Category Date Time Status EKG-ER Only STAT Care 08/12/19 10:03 Active IV Insertion STAT Care 08/12/19 10:03 Active ABDOMEN AND PELVIS W/0 CONTRAS [CT] Stat Exams 08/12/19 10:04 Taken CHEST 2 VIEWS (PA AND LAT) Stat Exams 08/12/19 10:05 Taken AMYLASE Stat Lab 08/12/19 10:15 Completed CBC W DIFF Stat Lab 08/12/19 10:15 Completed CMP Stat Lab 08/12/19 10:15 Completed D-DIMER QUANTITATIVE Stat Lab 08/12/19 10:15 Completed LIPASE Stat Lab 08/12/19 10:15 Completed Manual Differential NC Stat Lab 08/12/19 10:15 Completed NT PRO BNP Stat Lab 08/12/19 10:15 Completed TROPONIN Q3H Lab 08/12/19 10:15 Completed TROPONIN Q3H Lab 08/12/19 13:30 Completed TROPONIN Q3H Lab 08/12/19 16:15 Ordered TROPONIN Q3H Lab 08/12/19 19:15 Ordered TROPONIN Q3H Lab 08/12/19 22:15 Ordered UA W/RFX UR CULTURE Stat Lab 08/12/19 14:10 Completed Medication Summary Generic Name Dose Route Start Last Admin Trade Name Vasyl PRN Reason Stop Dose Admin Sodium Chloride 1,000 mls @ 100 mls/hr 08/12/19 10:15 08/12/19 10:33 Sodium Chloride 0.9% 1000 Ml IV 09/11/19 10:14 100 mls/hr .Q10H LUISITO Administration Discontinued Medications Generic Name Dose Route Start Last Admin Trade Name Vasyl PRN Reason Stop Dose Admin Bisacodyl 10 mg 08/12/19 11:38 08/12/19 11:48 Dulcolax 10 Mg Supp [place] 08/12/19 11:39 10 mg STAT ONE Administration Fentanyl Citrate 50 mcg 08/12/19 10:03 08/12/19 10:38 Sublimaze 100 Mcg/2 Ml IV 08/12/19 10:04 50 mcg STAT ONE Administration Fentanyl Citrate Confirm 08/12/19 10:25 Sublimaze 100 Mcg/2 Ml Administered 08/12/19 10:26 Dose 100 mcg .ROUTE .STK-MED ONE Magnesium Citrate 300 ml 08/12/19 11:38 08/12/19 11:44 Citroma 296 Ml PO 08/12/19 11:39 300 ml STAT ONE Administration Magnesium Citrate Confirm 08/12/19 11:42 Citroma 296 Ml Administered 08/12/19 11:43 Dose 296 ml .ROUTE .STK-MED ONE Magnesium Hydroxide 30 ml 08/12/19 11:38 08/12/19 11:44 Milk Of Magnesia 30 Ml PO 08/12/19 11:39 30 ml STAT ONE Administration Magnesium Hydroxide Confirm 08/12/19 11:42 Milk Of Magnesia 30 Ml Administered 08/12/19 11:43 Dose 30 ml .ROUTE .STK-MED ONE Nitroglycerin 0.4 mg 08/12/19 10:08 08/12/19 10:38 Nitrostat 0.4 Mg (Ed) SL 08/12/19 10:09 0.4 mg STAT ONE Administration Nitroglycerin Confirm 08/12/19 10:24 Nitrostat 0.4 Mg (Ed) Administered 08/12/19 10:25 Dose 0.4 mg SL .STK-MED ONE Promethazine HCl 12.5 mg 08/12/19 10:03 08/12/19 10:39 Phenergan 25 Mg Inj IV 08/12/19 10:04 12.5 mg STAT ONE Administration Promethazine HCl Confirm 08/12/19 10:24 Phenergan 25 Mg Inj Administered 08/12/19 10:25 Dose 25 mg .ROUTE .STK-MED ONE Promethazine HCl 12.5 mg 08/12/19 15:34 08/12/19 15:39 Phenergan 25 Mg Inj IV 08/12/19 15:35 12.5 mg STAT ONE Administration Promethazine HCl Confirm 08/12/19 15:38 Phenergan 25 Mg Inj Administered 08/12/19 15:39 Dose 25 mg .ROUTE .[facility]-MED ONE Lab/Rad Data: Laboratory Result Diagrams 08/12/19 10:15 08/12/19 10:15 Laboratory Results 08/12/19 08/12/19 08/12/19 Range/Units 14:10 13:30 10:15 WBC (4.0-10.5) K/mm3 RBC (4.1-5.4) M/mm3 Hgb (12.0-16.0) gm/dl Hct (35-47) % MCV (78-100) fl MCH (26-32) pg MCHC (32-36) g/dl RDW (11.5-14.0) % Plt Count (150-450) K/mm3 MPV (7.5-11.0) fl Segmented Neutrophils (36.0-66.0) % Lymphocytes (Manual) (24-44) % Monocytes (Manual) (0.0-12.0) % Eosinophils (Manual) (0.00-3.0) % Basophils # (0-0.4) Platelet Estimate (NORMAL) RBC Morphology D-Dimer (215-500) ng/mL Sodium (137-145) mmol/L Potassium (3.5-5.1) mmol/L Chloride (98-107) mmol/L Carbon Dioxide (22-30) mmol/L Anion Gap (5-15) MEQ/L BUN (7-17) mg/dL Creatinine (0.52-1.04) mg/dL Estimated GFR ML/MIN Glucose (74-106) mg/dL Calcium (8.4-10.2) mg/dL Total Bilirubin (0.2-1.3) mg/dL AST (14-36) U/L ALT (0-35) U/L Alkaline Phosphatase (38-126) U/L Troponin I 0.031 0.029 (0.000-0.034) ng/mL NT-Pro-B Natriuret Pep (0-900) pg/mL Serum Total Protein (6.3-8.2) g/dL Albumin (3.5-5.0) g/dL Amylase (30-110) U/L Lipase (23-300) U/L Urine Color YELLOW (YELLOW) Urine Appearance CLEAR (CLEAR) Urine pH 5.0 (5-6) Ur Specific [place] 1.008 (1.005-1.025) Urine Protein NEGATIVE (Negative) Urine Ketones MODERATE (NEGATIVE) Urine Blood NEGATIVE (0-5) Bart/ul Urine Nitrite NEGATIVE (NEGATIVE) Urine Bilirubin NEGATIVE (NEGATIVE) Urine Urobilinogen NEGATIVE (0-1) mg/dL Ur Leukocyte Esterase TRACE (NEGATIVE) Urine WBC (Auto) NONE (0-5) /HPF Urine RBC (Auto) NONE SEEN (0-2) /HPF U Hyaline Cast (Auto) 0-2 (0-2) /LPF U Epithel Cells (Auto) RARE (FEW) /HPF Urine Bacteria (Auto) NONE (NEGATIVE) /HPF Other Casts (Auto) 5-10 (NEGATIVE) /LPF Urine Mucus (Auto) SLIGHT (NEGATIVE) /HPF Urine Culture Reflexed NO (NO) Urine Glucose NEGATIVE (NEGATIVE) mg/dL 08/12/19 08/12/19 08/12/19 Range/Units 10:15 10:15 10:15 WBC (4.0-10.5) K/mm3 RBC (4.1-5.4) M/mm3 Hgb (12.0-16.0) gm/dl Hct (35-47) % MCV (78-100) fl MCH (26-32) pg MCHC (32-36) g/dl RDW (11.5-14.0) % Plt Count (150-450) K/mm3 MPV (7.5-11.0) fl Segmented Neutrophils (36.0-66.0) % Lymphocytes (Manual) (24-44) % Monocytes (Manual) (0.0-12.0) % Eosinophils (Manual) (0.00-3.0) % Basophils # (0-0.4) Platelet Estimate (NORMAL) RBC Morphology D-Dimer 457 (215-500) ng/mL Sodium 139 (137-145) mmol/L Potassium 3.6 (3.5-5.1) mmol/L Chloride 98 (98-107) mmol/L Carbon Dioxide 26 (22-30) mmol/L Anion Gap 18.0 H (5-15) MEQ/L BUN 4 L (7-17) mg/dL Creatinine 0.60 (0.52-1.04) mg/dL Estimated GFR > 60.0 ML/MIN Glucose 130 H (74-106) mg/dL Calcium 9.6 (8.4-10.2) mg/dL Total Bilirubin 0.90 (0.2-1.3) mg/dL AST 58 H (14-36) U/L ALT 40 H (0-35) U/L Alkaline Phosphatase 76 (38-126) U/L Troponin I (0.000-0.034) ng/mL NT-Pro-B Natriuret Pep 128 (0-900) pg/mL Serum Total Protein 7.5 (6.3-8.2) g/dL Albumin 4.3 (3.5-5.0) g/dL Amylase 49 (30-110) U/L Lipase 160 (23-300) U/L Urine Color (YELLOW) Urine Appearance (CLEAR) Urine pH (5-6) Ur Specific [place] (1.005-1.025) Urine Protein (Negative) Urine Ketones (NEGATIVE) Urine Blood (0-5) Bart/ul Urine Nitrite (NEGATIVE) Urine Bilirubin (NEGATIVE) Urine Urobilinogen (0-1) mg/dL Ur Leukocyte Esterase (NEGATIVE) Urine WBC (Auto) (0-5) /HPF Urine RBC (Auto) (0-2) /HPF U Hyaline Cast (Auto) (0-2) /LPF U Epithel Cells (Auto) (FEW) /HPF Urine Bacteria (Auto) (NEGATIVE) /HPF Other Casts (Auto) (NEGATIVE) /LPF Urine Mucus (Auto) (NEGATIVE) /HPF Urine Culture Reflexed (NO) Urine Glucose (NEGATIVE) mg/dL 08/12/19 Range/Units 10:15 WBC 6.3 (4.0-10.5) K/mm3 RBC 5.09 (4.1-5.4) M/mm3 Hgb 15.3 (12.0-16.0) gm/dl Hct 45.6 (35-47) % MCV 89.6 (78-100) fl MCH 30.1 (26-32) pg MCHC 33.6 (32-36) g/dl RDW 13.4 (11.5-14.0) % Plt Count 174 (150-450) K/mm3 MPV 12.1 H (7.5-11.0) fl Segmented Neutrophils 60 (36.0-66.0) % Lymphocytes (Manual) 30 (24-44) % Monocytes (Manual) 4 (0.0-12.0) % Eosinophils (Manual) 6 H (0.00-3.0) % Basophils # 0.04 (0-0.4) Platelet Estimate NORMAL (NORMAL) RBC Morphology NORMAL D-Dimer (215-500) ng/mL Sodium (137-145) mmol/L Potassium (3.5-5.1) mmol/L Chloride (98-107) mmol/L Carbon Dioxide (22-30) mmol/L Anion Gap (5-15) MEQ/L BUN (7-17) mg/dL Creatinine (0.52-1.04) mg/dL Estimated GFR ML/MIN Glucose (74-106) mg/dL Calcium (8.4-10.2) mg/dL Total Bilirubin (0.2-1.3) mg/dL AST (14-36) U/L ALT (0-35) U/L Alkaline Phosphatase (38-126) U/L Troponin I (0.000-0.034) ng/mL NT-Pro-B Natriuret Pep (0-900) pg/mL Serum Total Protein (6.3-8.2) g/dL Albumin (3.5-5.0) g/dL Amylase (30-110) U/L Lipase (23-300) U/L Urine Color (YELLOW) Urine Appearance (CLEAR) Urine pH (5-6) Ur Specific [place] (1.005-1.025) Urine Protein (Negative) Urine Ketones (NEGATIVE) Urine Blood (0-5) Bart/ul Urine Nitrite (NEGATIVE) Urine Bilirubin (NEGATIVE) Urine Urobilinogen (0-1) mg/dL Ur Leukocyte Esterase (NEGATIVE) Urine WBC (Auto) (0-5) /HPF Urine RBC (Auto) (0-2) /HPF U Hyaline Cast (Auto) (0-2) /LPF U Epithel Cells (Auto) (FEW) /HPF Urine Bacteria (Auto) (NEGATIVE) /HPF Other Casts (Auto) (NEGATIVE) /LPF Urine Mucus (Auto) (NEGATIVE) /HPF Urine Culture Reflexed (NO) Urine Glucose (NEGATIVE) mg/dL - Progress Progress: unchanged Discussed with .: Other (spoke with dr carbone([id number]) who accepted pt for transfer to [facility].) - Departure Departure Disposition: Transfer Clinical Impression: dyspnea, Tachycardia, Abdominal pain, Hypertension, elevating troponin Condition: Stable Critical Care Time: No Referrals: CABRERA GARSIA [Primary Care Provider] -
[2019-08-12] MEDS ORDERED: SUBLIMAZE 100 MCG/2 ML IV ONE (10:03)
[2019-08-12] MEDS ORDERED: Phenergan 25 MG INJ IV ONE ×2 (10:03→15:34)
[2019-08-12] MEDS ORDERED: Nitrostat 0.4 MG (ED) SL ONE ×2 (10:08→10:24)
[2019-08-12] MEDS ORDERED: Sodium Chloride 0.9% 1000 ML 1,000 ML IV SCH (10:15)
[2019-08-12] MEDS ORDERED: Phenergan 25 MG INJ ONE ×2 (10:24→15:38)
[2019-08-12] MEDS ORDERED: SUBLIMAZE 100 MCG/2 ML ONE (10:25)
[2019-08-12] MEDS ORDERED: Sodium Chloride 0.9% 1000 ML 1,000 ML ONE (10:25)
[2019-08-12 10:28] LABS: Basophil (Absolute #) 0.04 (0-0.4); Hematocrit 45.6 % (35-47); Hemoglobin 15.3 gm/dl (12.0-16.0); Mean Cell Volume 89.6 fl (78-100); Mean Corpuscular Hemoglobin 30.1 pg (26-32); Mean Corpuscular Hgb Concent. 33.6 g/dl (32-36); Mean Platelet Volume 12.1 fl (7.5-11.0); Platelet Count 174 K/mm3 (150-450); Red Blood Count 5.09 M/mm3 (4.1-5.4); Red Cell Distribution Width 13.4 % (11.5-14.0); White Blood Count 6.3 K/mm3 (4.0-10.5)
[2019-08-12 10:36] LABS: ALBUMIN 4.3 g/dL (3.5-5.0); ALKALINE PHOSPHATASE 76 U/L (38-126); AMYLASE 49 U/L (30-110); BLOOD UREA NITROGEN 4 mg/dL (7-17); CHLORIDE 98 mmol/L (98-107); Calcium 9.6 mg/dL (8.4-10.2); Carbon Dioxide 26 mmol/L (22-30); Glucose 130 mg/dL (74-106); LIPASE 160 U/L (23-300); Potassium 3.6 mmol/L (3.5-5.1); SGOT/AST 58 U/L (14-36); SGPT/ALT 40 U/L (0-35); SODIUM 139 mmol/L (137-145); Total Protein 7.5 g/dL (6.3-8.2)
[2019-08-12] MEDS ORDERED: CITROMA 296 ML PO ONE (11:38)
[2019-08-12] MEDS ORDERED: Dulcolax 10 MG SUPP PR ONE (11:38)
[2019-08-12] MEDS ORDERED: MILK OF MAGNESIA 30 ML PO ONE (11:38)
[2019-08-12] MEDS ORDERED: CITROMA 296 ML ONE (11:42)
[2019-08-12] MEDS ORDERED: MILK OF MAGNESIA 30 ML ONE (11:42)
[2019-08-12 13:08] LABS: Eosinophil 6 % (0.00-3.0); Lymphocytes 30 % (24-44); Monocyte 4 % (0.0-12.0); Neutrophils 60 % (36.0-66.0); Platelet Estimate NORMAL (NORMAL); Total Cells Counted 100
[2019-08-12 14:34] LABS: Appearance CLEAR (CLEAR); Bilirubin NEGATIVE (NEGATIVE); Blood NEGATIVE Ery/ul (0-5); Epithelial Cells RARE /HPF (FEW); Glucose NEGATIVE (NEGATIVE); Hyaline Casts 0-2 /LPF (0-2); Ketones MODERATE (NEGATIVE); Leukocyte Esterase TRACE (NEGATIVE); Mucus SLIGHT /HPF (NEGATIVE); Nitrite NEGATIVE (NEGATIVE); Protein,Urine Dip NEGATIVE (Negative); Specific Gravity 1.008 (1.005-1.025); Urobilinogen NEGATIVE mg/dL (0-1)
[2019-08-12 14:38] LABS: RBC NONE SEEN /HPF (0-2)
[2019-08-12 16:26] VITALS: BP 126/70; PULSE 68; O2SAT 98
--- NOTE | 2019-08-12 18:21 | XRAY ---
Indication: Abdomen pain. Constipation. Multiple contiguous axial images obtained through the abdomen and pelvis without contrast as ordered. Comparison: July 19, 2019. Lung bases remain clear. Heart is not enlarged. Stable small hiatal hernia. Noncontrasted stomach and bowel loops appear nonobstructed. Normal appendix. There is little to no colonic fecal debris. Stable mild fatty liver and previous cholecystectomy. No free fluid/air. Remaining liver, pancreas, spleen, adrenal glands, kidneys, ureters, bladder, and uterus appear unremarkable for noncontrast exam. Stable minimal aortoiliac calcifications without AAA. Osseous structures intact with stable mild degenerative changes throughout the thoracolumbar spine and stable L2 bone island. Impression: 1. Stable hiatal hernia, fatty liver, and chronic bony findings. 2. Remaining CT abdomen/pelvis without contrast exam is negative. Comment: Preliminary interpretation was made by [facility]. No critical discrepancy.
--- NOTE | 2019-08-12 18:23 | XRAY ---
Indication: Tachycardia. Comparison: None PA/lateral chest demonstrates normal heart and lungs. Bony thorax intact with mild degenerative changes.
== END 2019-08-12 16:35 | disposition short-term general hospital (02) ==
LOC: ED 09:37
DX: R06.00 Dyspnea, unspecified (principal); R10.9 Unspecified abdominal pain; I10 Essential (primary) hypertension; R74.8 Abnormal levels of other serum enzymes
CPT/HCPCS: 36000; 36415; 71046; 74176; 80053; 81001; 82150; 83690; 83880; 84484; 85025; 85379; 93005; 96374; 96375; 96376; 99285; J2550; J3010; A9270-GY

== ENCOUNTER 2024-01-10 05:52 | Day surgery (SDC) | payer MEDICARE ==
[2024-01-10] MEDS ORDERED: Epinephrine Preservative Free 1 MG/ML IJ ONE (05:53)
[2024-01-10] MEDS ORDERED: NON-FORMULARY ITEM OP ONE (06:00)
[2024-01-10] MEDS ORDERED: cefUROXime sodium 0.005 GM in Sodium Chloride Flush 30 ML*** 0.5 ML IJ ONE (06:00)
[2024-01-10] MEDS ORDERED: BETADINE 5% OPHTHALMIC 30 ML OP ONE (06:00)
[2024-01-10] MEDS ORDERED: TETRACAINE 0.5% STERI-UNIT SOL OP ONE (06:00)
[2024-01-10] MEDS ORDERED: Lactated Ringers 1,000 ML IV ONE (06:08)
[2024-01-10] MEDS: Lactated Ringers 1,000 ML IV SCH (06:15)
[2024-01-10] MEDS: TETRACAINE 0.5% STERI-UNIT SOL OP ONE (06:47)
[2024-01-10] MEDS: Ak-Dilate OPHTHALMIC*** 1.065 ML, Cyclogyl 1% OPHTH SOL 1.065 ML, GATIFLOXACIN 0.5% OPH... OP ONE (06:48)
[2024-01-10] MEDS ORDERED: Zofran 4 MG/2 ML VIAL IV PRN (08:00)
[2024-01-10] MEDS ORDERED: DIPRIVAN 200 MG/20 ML IV ONE ×3 (09:21→10:01)
[2024-01-10 10:19] VITALS: RESP 16
[2024-01-10 10:23] VITALS: PULSE 56
[2024-01-10] MEDS: ACETAZOLAMIDE 250 MG TABLET PO ONE (10:23)
[2024-01-10 10:28] VITALS: BP 112/64; TEMP 97.1; O2SAT 97
== END 2024-01-10 10:38 | disposition home or self-care (01) ==
LOC: SDC 05:52
PROVIDERS: ATTEND Ophthalmology
DX: H25.812 Combined forms of age-related cataract, left eye (principal); E11.9 Type 2 diabetes mellitus without complications
CPT/HCPCS: 82947; C1780; J0171; J2704; A9270-GY

== ENCOUNTER 2024-02-07 07:50 | Day surgery (SDC) | payer MEDICARE ==
[~2024-02-07 07:50] MED LIST: Lactated Ringers 1,000 ML IV ONE
[2024-02-07] MEDS ORDERED: BETADINE 5% OPHTHALMIC 30 ML OP ONE (08:00)
[2024-02-07] MEDS: Ak-Dilate OPHTHALMIC*** 1.065 ML, Cyclogyl 1% OPHTH SOL 1.065 ML, GATIFLOXACIN 0.5% OPH... OP ONE (08:00)
[2024-02-07] MEDS ORDERED: cefUROXime sodium 0.005 GM in Sodium Chloride Flush 30 ML*** 0.5 ML IJ ONE (08:00)
[2024-02-07] MEDS: TETRACAINE 0.5% STERI-UNIT SOL OP ONE ×2 (08:00→09:00)
[2024-02-07] MEDS ORDERED: NON-FORMULARY ITEM OP ONE (08:00)
[2024-02-07] MEDS: Lactated Ringers 1,000 ML IV SCH (08:12)
[2024-02-07] MEDS ORDERED: Zofran 4 MG/2 ML VIAL IV PRN (10:00)
[2024-02-07] MEDS ORDERED: Epinephrine Preservative Free 1 MG/ML IJ ONE (10:00)
[2024-02-07] MEDS ORDERED: DIPRIVAN 200 MG/20 ML IV ONE (10:29)
[2024-02-07] MEDS ORDERED: SUBLIMAZE 100 MCG/2 ML ONE (10:32)
[2024-02-07] MEDS ORDERED: ALBUTEROL/Proair Hfa MDI IH ONE (10:48)
[2024-02-07] MEDS: ACETAZOLAMIDE 250 MG TABLET PO ONE (10:54)
[2024-02-07 10:57] VITALS: RESP 16
[2024-02-07 11:03] VITALS: TEMP 97
[2024-02-07 11:06] VITALS: BP 122/56; PULSE 49; O2SAT 97
== END 2024-02-07 11:24 | disposition home or self-care (01) ==
LOC: SDC 07:50
PROVIDERS: ATTEND Ophthalmology
DX: H25.811 Combined forms of age-related cataract, right eye (principal); E11.9 Type 2 diabetes mellitus without complications
CPT/HCPCS: 82947; C1780; J0171; J2704; J3010; A9270-GY